=== PATIENT | male | born 1995 | race African-American/Black ===

== ENCOUNTER 2021-05-25 07:48 | Inpatient (IN) | payer OTHER ==
[2021-05-25] MEDS ORDERED: TRIMETHOBENZAMIDE HCL 200MG/2ML INJ IM ONE (08:15)
[2021-05-25] MEDS ORDERED: MAG HYDROX/AL HYDROX/SIMETH 30 ML UNIT-DOSE CUP PO PRN (08:18)
[2021-05-25] MEDS ORDERED: METHOCARBAMOL 500 MG TABLET PO PRN (08:18)
[2021-05-25] MEDS ORDERED: ONDANSETRON *ODT* 4 MG TABLET SL PRN ×3 (08:18→13:19)
[2021-05-25] MEDS ORDERED: MAGNESIUM HYDROX 2400MG/30ML ORAL SUSPENSION 30 ML CUP PO PRN (08:18)
[2021-05-25] MEDS ORDERED: MENTHOL/PHENOL 1 EACH UD MM PRN (08:18)
[2021-05-25] MEDS ORDERED: IBUPROFEN 400 MG TABLET (FP) PO PRN (08:18)
[2021-05-25] MEDS ORDERED: ACETAMINOPHEN 325 MG TABLET (FP) PO PRN ×2 (08:18)
[2021-05-25] MEDS ORDERED: BISMUTH SUBSALICYLATE 524 MG/30 ML PO PRN (08:18)
[2021-05-25] MEDS ORDERED: MAGNESIUM CITRATE 300 ML BOTTLE PO PRN (08:18)
[2021-05-25] MEDS ORDERED: NICOTINE POLACRILEX 2 MG GUM BUC PRN (08:18)
[2021-05-25] MEDS ORDERED: cloNIDine HCL 0.1 MG TABLET PO PRN (08:20)
[2021-05-25] MEDS ORDERED: hydrOXYzine PAMOATE 25 MG CAPSULE (FP) PO PRN (08:22)
[2021-05-25] MEDS ORDERED: diazePAM 5 MG TABLET PO PRN (08:23)
[2021-05-25] MEDS ORDERED: METHADONE DETOX 10 MG/1 ML [20ML VIAL] IM ONE ×2 (08:30→10:17)
[2021-05-25] MEDS ORDERED: METHADONE DETOX 10 MG/1 ML [20ML VIAL] ONE (08:40)
[2021-05-25 09:29] VITALS: BMI 28.4
[2021-05-25] MEDS ORDERED: ONDANSETRON *ODT* 4 MG TABLET ONE (09:41)
[2021-05-25] MEDS ORDERED: hydrOXYzine PAMOATE 25 MG CAPSULE (FP) PO SCH (10:00)
[2021-05-25] MEDS ORDERED: PRENATAL VITAMINS W/ FOLIC ACID TABLET (FP) PO SCH (10:00)
[2021-05-25] MEDS: TRIMETHOBENZAMIDE HCL 200MG/2ML INJ IM PRN ×2 (10:38→18:52)
[2021-05-25] MEDS ORDERED: ONDANSETRON *ODT* 4 MG TABLET SL ONE (12:14)
[2021-05-25] MEDS ORDERED: PROCHLORPERAZINE MALEATE 25 MG SUPP.RECT PR ONE (12:15)
[2021-05-25] MEDS ORDERED: PROCHLORPERAZINE MALEATE 25 MG SUPP.RECT RC ONE (13:30)
[2021-05-25] MEDS ORDERED: SODIUM CHLORIDE 1,000 ML IV SCH (13:30)
[2021-05-25 18:31] VITALS: BP 134/75; PULSE 69; TEMP 96.6
[2021-05-25] MEDS ORDERED: THIAMINE HCL 100 MG TABLET (FP) PO SCH (22:00)
[2021-05-25] MEDS ORDERED: MELATONIN 5 MG TABLETS PO SCH (22:00)
[2021-05-27] MEDS ORDERED: methaDONE HCL 10 MG TABLET (FOR DETOX USE ONLY) PO ONE (10:00)
[2021-05-29] MEDS ORDERED: methaDONE HCL 10 MG TABLET (FOR DETOX USE ONLY) PO ONE (10:00)
== END 2021-05-25 20:20 | disposition left against medical advice (07) | DRG 770 ==
LOC: YASAS 07:48 → Y3N 09:49
PROVIDERS: ADMIT Allergy & Immunology; ATTEND Allergy & Immunology
PROC: HZ2ZZZZ Detoxification Services for Substance Abuse Treatment (ICD-10-PCS; principal; 2021-05-25)
DX: F11.23 Opioid dependence with withdrawal (principal); F17.210 Nicotine dependence, cigarettes, uncomplicated; R11.2 Nausea with vomiting, unspecified
CPT/HCPCS: 93005; 93010; C9803; J0735; Q0162; U0003; U0005